=== PATIENT | male | born 1950 | race Hispanic/Latino ===

== ENCOUNTER 2018-07-18 06:44 | Emergency (ER) | payer MEDICARE ==
[~2018-07-18] VITALS: Ht 185.4 cm; Wt 81.2 kg
--- NOTE | 2018-07-18 08:00 | NUR ---
Dr. Kowalski notified of inability to irrigate current Tucker at this time. New orders to remove old catheter and insert new Tucker.
[2018-07-18] MEDS ORDERED: LIDOCAINE JELLY 2% 10ML URO-JET ONE (08:01)
[2018-07-18 08:25] LABS: CLARITY,URINE CLOUDY (CLEAR); COLOR,URINE YELLOW (YELLOW)
[2018-07-18 08:26] LABS: BILIRUBIN,URINE NEGATIVE (NEGATIVE); KETONES,URINE NEGATIVE (NEGATIVE); LEUKOCYTE ESTERASE ,URINE 2+ (NEGATIVE); NITRITE,URINE NEGATIVE (NEGATIVE); PROTEIN,URINE DIPSTICK TRACE (NEGATIVE); URINE UROBILINOGEN 0.2 mg/dL (0.2 - 1)
[2018-07-18] MEDS ORDERED: LIDOCAINE JELLY 2% 10ML URO-JET TOP ONE (08:30)
[2018-07-18 08:31] LABS: AMORPHOUS SEDIMENT,URINE MODERATE (FEW); BACTERIA,URINE MANY /HPF; EPITHELIAL CELLS,URINE FEW /LPF; MUCUS,URINE MODERATE (RARE); TRIPLE PHOSPHATE CRYSTAL,UR FEW (FEW)
[2018-07-18] MEDS ORDERED: MACROBID 100 M100 MG PO (08:48)
[2018-07-18 08:51] VITALS: BP 132/72
== END 2018-07-18 09:05 | disposition home or self-care (01) ==
LOC: ER 06:44
DX: R33.9 Retention of urine, unspecified (principal); I10 Essential (primary) hypertension; E78.5 Hyperlipidemia, unspecified; Z86.718 Personal history of other venous thrombosis and embolism
CPT/HCPCS: 51700; 81001; 87086; 87186; 99284

== ENCOUNTER 2018-10-26 22:12 | Emergency (ER) | payer OTHER ==
[~2018-10-26] VITALS: Ht 185.4 cm; Wt 81.2 kg
[~2018-10-26 22:12] MED LIST: MACROBID 100 M100 MG PO
--- NOTE | 2018-10-26 23:00 | NUR ---
PT C CATHETER IN PLACE ON ARRIVAL TO ER. NO URINE OUTPUT PER FAMILY. 20FR CATHETER REMOVED PER MD ORDERS. MARTINEZ NOTED C 38 CC FLUID WHILE DEFLATING. ORDERED TO REPLACE CATHETER. 20FR CATHETER INSERTED. CLOUDY YELLOW URINE RETURN NOTED. MARTINEZ INFLATED C 30CC NS. MD INFORMED. 275CC CLOUDY YELLOW RETURN NOTED IN BAG.
[2018-10-26 23:18] LABS: BILIRUBIN,URINE NEGATIVE (NEGATIVE); CLARITY,URINE CLOUDY (CLEAR); COLOR,URINE YELLOW (YELLOW); KETONES,URINE NEGATIVE (NEGATIVE); LEUKOCYTE ESTERASE ,URINE LARGE (NEGATIVE); NITRITE,URINE POSITIVE (NEGATIVE); PROTEIN,URINE DIPSTICK TRACE (NEGATIVE); URINE UROBILINOGEN 1 mg/dL (0.2 - 1)
[2018-10-26 23:32] LABS: AMORPHOUS SEDIMENT,URINE MANY (FEW); BACTERIA,URINE MANY /HPF; EPITHELIAL CELLS,URINE FEW /LPF; TRIPLE PHOSPHATE CRYSTAL,UR FEW (FEW); WBC,URINE (MAN) >50 /HPF (0-5)
== END 2018-10-27 00:09 | disposition home or self-care (01) ==
LOC: ER 22:12
DX: N30.91 Cystitis, unspecified with hematuria (principal); N40.1 Benign prostatic hyperplasia with lower urinary tract symptoms; R33.8 Other retention of urine
CPT/HCPCS: 51700; 81001; 87086; 87186; 99283

== ENCOUNTER 2019-02-10 10:13 | Emergency (ER) | payer OTHER ==
[~2019-02-10] VITALS: Ht 185.4 cm; Wt 81.2 kg
== END 2019-02-10 11:15 | disposition home or self-care (01) ==
LOC: ER 10:13
DX: Z46.6 Encounter for fitting and adjustment of urinary device (principal); R33.9 Retention of urine, unspecified; I10 Essential (primary) hypertension; E78.5 Hyperlipidemia, unspecified; Z79.82 Long term (current) use of aspirin; Z86.718 Personal history of other venous thrombosis and embolism; Z86.711 Personal history of pulmonary embolism; M54.9 Dorsalgia, unspecified; G89.29 Other chronic pain
CPT/HCPCS: 99282

== ENCOUNTER 2019-02-11 15:43 | Observation (INO) | payer OTHER ==
[~2019-02-11] VITALS: Ht 185.4 cm; Wt 81.2 kg
--- NOTE | 2019-02-11 17:46 | Diagnostic Imaging Report ---
History:Fall, history of hypotension Comparison studies: None Technique: Axial images were obtained from the skull base to the vertex. Coronal and sagittal images reconstructed from the axial data. Dose modulation, iterative reconstruction, and/or weight based adjustment of the mA/kV was utilized to reduce the radiation dose to as low as reasonably achievable. Intravenous contrast: None Findings: Suboptimal evaluation due to motion artifact, particularly at the level of skull base and posterior fossa structures. Scalp/skull: 6 mm midline frontal scalp contusion without underlying fracture. There is an additional soft tissue contusion overlying the left superior lateral orbital rim measuring up to 11 mm in depth. Extra-axial spaces: No masses. No fluid collections. Brain sulci: Mildly prominent. Ventricles: The ventricular system is moderately enlarged, possibly more so than the degree of volume loss. Parenchyma: Periventricular hypodensities in the supratentorial white matter likely represent small vessel ischemic changes. No masses, hemorrhage, acute or chronic cortical vascular insults. Sellar/suprasellar region: No abnormalities. Craniocervical junction: Patent foramen magnum. No Chiari one malformation. Incidental findings: Atherosclerotic calcifications in the carotid siphons . Impression: 1. Frontal scalp and left periorbital soft tissue contusions without underlying fractures. 2. Moderate ventriculomegaly is out of proportion to the degree of parenchymal volume loss, may represent normal pressure hydrocephalus in appropriate clinical setting. 3. Periventricular hypodensities likely represent underlying chronic microvascular ischemic changes, although a component of transependymal edema from hydrocephalus cannot be ruled out. A preliminary report was given by Neuroradiology fellow Dr. Pacheco at 5:46 PM on 02/11/2019. I have reviewed the images and agree with findings in the preliminary report. Signed by: Dr. Paradise Rascon M.D. on 02/11/2019 7:56 PM
[2019-02-11 18:04] LABS: BASOPHILS % 0.2 % (0.0-1.0); EOSINOPHILS % 0.2 % (0.0-6.0); HEMATOCRIT 26.3 % (38.2-49.6); HEMOGLOBIN 8.9 g/dL (14.0-18.0); LYMPHOCYTES # (AUTO) 0.9 (1.0-3.2); LYMPHOCYTES % 6.9 % (18.0-39.1); MEAN CORPUSCULAR HEMOGLOBIN 33.3 pg (28-32); MEAN CORPUSCULAR HGB CONC 33.8 g/dL (31-35); MEAN CORPUSCULAR VOLUME 98.5 fL (81-99); MONOCYTES # (AUTO) 0.9 (0.2-0.8); MONOCYTES % 7.5 % (4.4-11.3); NEUTROPHILS # (AUTO) 10.5 (2.1-6.9); NEUTROPHILS % 84.8 % (38.7-80.0); PLATELET COUNT 222 x10e3/uL (140-360); RED BLOOD COUNT 2.67 x10e6/uL (4.3-5.7); RED CELL DISTRIBUTION WIDTH 12.9 % (11.7-14.4)
[2019-02-11 18:15] LABS: BILIRUBIN,URINE NEGATIVE (NEGATIVE); CLARITY,URINE SL CLOUDY (CLEAR); COLOR,URINE YELLOW (YELLOW); KETONES,URINE NEGATIVE (NEGATIVE); LEUKOCYTE ESTERASE ,URINE LARGE (NEGATIVE); NITRITE,URINE NEGATIVE (NEGATIVE); PROTEIN,URINE DIPSTICK 1+ (NEGATIVE); URINE UROBILINOGEN 0.2 mg/dL (0.2 - 1)
[2019-02-11 18:24] LABS: ALANINE AMINOTRANSFERASE 10 IU/L (0-55); ALKALINE PHOSPHATASE 54 IU/L (40-150); ANION GAP 13.4 mmol/L (8-16); BLOOD UREA NITROGEN 13 mg/dL (7-26); BUN/CREATININE RATIO 21 (6-25); CALCIUM 8.9 mg/dL (8.4-10.2); CARBON DIOXIDE 29 mmol/L (22-29); CHLORIDE 93 mmol/L (98-107); CREATININE, SERUM 0.63 mg/dL (0.72-1.25); EST GLOMERULAR FILTRATION RATE > 60 ML/MIN (60-); GLUCOSE 106 mg/dL (74-118); POTASSIUM 3.4 mmol/L (3.5-5.1); SODIUM 132 mmol/L (136-145)
[2019-02-11 18:42] LABS: BACTERIA,URINE MODERATE /HPF; EPITHELIAL CELLS,URINE FEW /LPF; WBC,URINE (MAN) 21-50 /HPF (0-5)
[2019-02-11] MEDS ORDERED: ACETAMINOPHEN 325 MG TAB PO PRN (18:45)
--- NOTE | 2019-02-11 18:52 | Diagnostic Imaging Report ---
Examination: Single AP view of the chest. COMPARISON: None. INDICATION: Fall, shakes DISCUSSION: Lines/tubes: None. Lungs: The lungs are well inflated and clear. No pneumonia or pulmonary edema. Pleura: No pleural effusion or pneumothorax. Heart and mediastinum: Mild cardiomegaly Bones and soft tissues: No acute bony abnormalities. Degenerative changes in the thoracic spine. IMPRESSION: 1. No acute cardiopulmonary abnormalities. Signed by: Dr. Abel Moffett M.D. on 02/11/2019 6:49 PM
[2019-02-11 20:05] VITALS: BP 104/57
[2019-02-11 20:30] VITALS: BP 104/57
[2019-02-11 21:00] VITALS: BP 104/57
[2019-02-12] VITALS (8 sets, daily range): BP systolic 112–166; BP diastolic 56–78
[2019-02-12] MEDS ORDERED: POTASSIUM CHLO10 ME1 PO (01:07)
[2019-02-12] MEDS ORDERED: FLOMAX0.4 MG PO (01:07)
[2019-02-12] MEDS ORDERED: DOCUSATE SODIU100 MG PO (01:07)
[2019-02-12] MEDS ORDERED: LISINOPRIL30 MG PO (01:07)
[2019-02-12] MEDS ORDERED: ASPIRIN CHEW81 MG PO (01:07)
[2019-02-12] MEDS ORDERED: VITAMIN D400 UNIT PO (01:07)
[2019-02-12] MEDS ORDERED: CRESTOR10 MG PO (01:07)
[2019-02-12] MEDS ORDERED: ENSURE PLUS237 ML (01:07)
[2019-02-12] MEDS ORDERED: FINASTERIDE5 MG PO (01:07)
[2019-02-12] MEDS ORDERED: OMEPRAZOLE40 MG PO (01:07)
[2019-02-12] MEDS ORDERED: ROPINIROLE HCL1 MG PO (01:07)
[2019-02-12] MEDS ORDERED: NAMENDA10 MG PO (01:07)
[2019-02-12] MEDS ORDERED: ACETAMINOP325 MG/10 PO (01:07)
[2019-02-12 05:48] LABS: BASOPHILS % 0.1 % (0.0-1.0); HEMATOCRIT 25.9 % (38.2-49.6); HEMOGLOBIN 8.6 g/dL (14.0-18.0); LYMPHOCYTES # (AUTO) 0.4 (1.0-3.2); LYMPHOCYTES % 4.3 % (18.0-39.1); MEAN CORPUSCULAR HGB CONC 33.2 g/dL (31-35); MEAN CORPUSCULAR VOLUME 96.3 fL (81-99); MONOCYTES # (AUTO) 0.6 (0.2-0.8); MONOCYTES % 6.2 % (4.4-11.3); NEUTROPHILS # (AUTO) 8.4 (2.1-6.9); NEUTROPHILS % 89.1 % (38.7-80.0); PLATELET COUNT 212 x10e3/uL (140-360); RED BLOOD COUNT 2.69 x10e6/uL (4.3-5.7); RED CELL DISTRIBUTION WIDTH 12.7 % (11.7-14.4)
[2019-02-12 06:10] LABS: ALANINE AMINOTRANSFERASE 9 IU/L (0-55); ALBUMIN 2.7 g/dL (3.5-5.0); ALBUMIN/GLOBULIN RATIO 0.9 (0.8-2.0); ALKALINE PHOSPHATASE 48 IU/L (40-150); BLOOD UREA NITROGEN 11 mg/dL (7-26); BUN/CREATININE RATIO 20 (6-25); CALCIUM 8.8 mg/dL (8.4-10.2); CARBON DIOXIDE 30 mmol/L (22-29); CHLORIDE 96 mmol/L (98-107); CREATININE, SERUM 0.56 mg/dL (0.72-1.25); EST GLOMERULAR FILTRATION RATE > 60 ML/MIN (60-); GLUCOSE 103 mg/dL (74-118); SODIUM 133 mmol/L (136-145)
[2019-02-12] MEDS ORDERED: SIMVASTATIN 40 MG TAB PO SCH (09:00)
[2019-02-12] MEDS: DOCUSATE SODIUM 100 MG CAP PO SCH ×2 (09:00→17:23)
[2019-02-12] MEDS ORDERED: SODIUM CHLORIDE 0.9% 250ML 250 ML ONE (10:36)
[2019-02-12] MEDS: POTASSIUM CHLORIDE 10MEQ EA PO SCH (10:41)
[2019-02-12] MEDS: FINASTERIDE 5 MG TAB PO SCH (10:43)
[2019-02-12] MEDS: ROPINIROLE HCL 1 MG TAB PO SCH ×2 (10:43→17:23)
[2019-02-12] MEDS: PANTOPRAZOLE SOD 40 MG TABEC PO SCH (10:43)
[2019-02-12] MEDS: TAMSULOSIN HCL 0.4 MG CAP PO SCH (10:45)
[2019-02-12] MEDS: MEMANTINE 10 MG TAB PO SCH (10:45)
[2019-02-12] MEDS: MAGNESIUM OXIDE 400 MG TAB PO SCH ×2 (10:45→17:23)
[2019-02-12] MEDS: CEFTRIAXONE SOD 1 GM/NS 50 ML 50 ML IV SCH ×2 (10:46→21:08)
[2019-02-12] MEDS: LISINOPRIL 10 MG TAB PO SCH (10:46)
--- NOTE | 2019-02-12 13:36 | History and Physical ---
The patient on observation. Observation day, February 11, 2019. PRIMARY CARE PHYSICIAN: Willam Caruso MD. SUPERINTENDENT LAUNDRY: Shahid Mason MD. CHIEF COMPLAINT: Status post fall with facial hematoma. HISTORY OF PRESENT ILLNESS: This is a 68-year-old male with urinary retention, chronic Tucker catheter. The patient has recurrent urinary tract infection. Apparently, he was in his wheelchair outside smoking and he dropped his glasses, bend down to pick his glasses and fell on his face. He has a facial hematoma. He was brought into the hospital for an evaluation. In the hospital emergency room, the patient had a CT scan of the brain that was done and the finding found that he has frontal scalp and left periorbital soft tissue contusion without underlying fractures. He does have moderate ventriculomegaly out of proportion to the degree of the parenchymal volume loss. This may represent normal pressure hydrocephalus in appropriate setting per reading. Therefore, a consultation was placed with Dr. Mason. The patient is otherwise stable. No headaches. No visual changes. PAST MEDICAL HISTORY: Hiatal hernia, reflux, urinary retention and chronic Tucker catheter, vascular Parkinson, severe neuropathy, bed and wheelchair-bound, hypertension, enlarged prostate, recurrent urinary tract infection, and dyslipidemia. PAST SURGICAL HISTORY: Lower back surgery, arthroscopic knee surgery, and appendectomy. SOCIAL HISTORY: The patient is a smoker. He does not drink alcohol. No regular drug. ALLERGIES: TO GALANTAMINE, LIPITOR, PRAVASTATIN, AND SULINDAC. PHYSICAL EXAMINATION: VITAL SIGNS: Temperature is 98, blood pressure 153/73, pulse rate 92, and respirations 18. GENERAL: The patient is in no acute distress. He is awake. HEENT: Facial hematoma, orbital swelling. No laceration. NECK: Grossly supple. PULMONARY: Clear. CARDIOVASCULAR: Regular rate and rhythm. ABDOMEN: Soft, non-distention, and nontender. Tucker catheter in place. EXTREMITIES: No cyanosis or edema. Multiple bruises noticed. NEUROLOGIC: No gross new focal deficit on examination and per family. LABORATORY DATA: Sodium is 133, potassium 3, chloride 96, bicarb 30, BUN 11, creatinine of 0.6,and glucose 103. WBC is 9.5, hemoglobin 8.6, hematocrit 26, and platelets is 212. AST 10, ALT 9, total bilirubin 0.6, and alkaline phosphatase 48. CT scan of the brain as mentioned above. Chest x-ray, no acute cardiopulmonary abnormality. IMPRESSION: 1. Status post fall with facial swelling and hematoma. No laceration. No fractures noticed. 2. Electrolyte disorder. 3. Hydrocephalus. 4. Baseline multiple medical problem including vascular dementia, Parkinson, severe neuropathy, bed and wheelchair-bound, smoker, hiatal hernia, and reflux. PLAN: Replace electrolytes. Home medication resume. Antibiotics. We will monitor the patient closely. Follow up with Dr. Shahid Mason in consultation. Most likely, the patient will be going home within 24 to 48 hours. MD MAXIMUS Gutierrez/MODL /[id number]
--- NOTE | 2019-02-12 20:34 | Diagnostic Imaging Report ---
EXAMINATION: Head CT HISTORY: Status post fall 2 weeks ago, follow-up, hydrocephalus COMPARISON: Head CT 02/11/2019 TECHNIQUE: Multidetector axial images were obtained without contrast from the foramen magnum to the vertex . The images were reconstructed using brain and bone algorithms. Thin section brain images were reformatted into coronal and sagittal planes. Image quality: Motion/streaking artifact limits the evaluation of the skull base and posterior cranial fossa. Dose modulation, iterative reconstruction, and/or weight based adjustment of the mA/kV was utilized to reduce the radiation dose to as low as reasonably achievable. FINDINGS: Parenchyma: 1. Stable moderate chronic microvascular ischemic changes. 2. No mass or hemorrhage. No CT evidence of acute territorial vascular insult. Extra-axial spaces:No abnormal density. No extra-axial fluid collections Brain volume: Normal for age. Ventricles: Mild ventriculomegaly, that is slightly out of proportion to the size of the cortical sulci, thinning and upward displacement of the corpus callosum, with relative partial effacement of the vertex region sulci. Some degree of normal pressure hydrocephalus cannot be excluded in the appropriate clinical setting. Arteries: No density suggestive of thrombus. Dural sinuses: No abnormal density. Extra-axial spaces: No abnormal density. Foramen magnum: No mass, Chiari malformation, or basilar invagination. Sella: No obvious mass. Paranasal/mastoid sinuses: Imaged portions unremarkable. Skull/Scalp: No lytic or blastic lesions. No fractures. Persistent left frontotemporal and midline forehead soft tissue swelling/hematoma. IMPRESSION: 1. No acute posttraumatic intracranial hemorrhage. 2. Moderate chronic lacunar ischemic changes, stable compared to prior study. 3. Disproportionate ventriculomegaly, unchanged compared to head CT of 02/11/2019. 4. Grossly unchanged frontal scalp and left periorbital soft tissue swelling. Signed by: Dr. Kasey Marte M.D. on 02/12/2019 8:31 PM
[2019-02-13] VITALS: BP 137/70
[2019-02-13 04:00] VITALS: BP 147/70
[2019-02-13] MEDS: LISINOPRIL 10 MG TAB PO SCH (05:46)
[2019-02-13 06:18] LABS: ANION GAP 11.1 mmol/L (8-16); BLOOD UREA NITROGEN 11 mg/dL (7-26); BUN/CREATININE RATIO 20 (6-25); CALCIUM 8.8 mg/dL (8.4-10.2); CARBON DIOXIDE 29 mmol/L (22-29); CHLORIDE 94 mmol/L (98-107); CREATININE, SERUM 0.55 mg/dL (0.72-1.25); EST GLOMERULAR FILTRATION RATE > 60 ML/MIN (60-); GLUCOSE 105 mg/dL (74-118); POTASSIUM 3.1 mmol/L (3.5-5.1); SODIUM 131 mmol/L (136-145)
[2019-02-13] MEDS ORDERED: POTASSIUM CHLORIDE 20 MEQ TAB CR PO ONE (08:00)
[2019-02-13 09:02] VITALS: BP 147/70
[2019-02-13] MEDS: POTASSIUM CHLORIDE 10MEQ EA PO SCH (09:04)
[2019-02-13] MEDS: CEFTRIAXONE SOD 1 GM/NS 50 ML 50 ML IV SCH (09:04)
[2019-02-13] MEDS: DOCUSATE SODIUM 100 MG CAP PO SCH (09:04)
[2019-02-13] MEDS: ROPINIROLE HCL 1 MG TAB PO SCH (09:04)
[2019-02-13] MEDS: FINASTERIDE 5 MG TAB PO SCH (09:04)
[2019-02-13] MEDS: TAMSULOSIN HCL 0.4 MG CAP PO SCH (09:04)
[2019-02-13] MEDS: MEMANTINE 10 MG TAB PO SCH (09:04)
[2019-02-13] MEDS: MAGNESIUM OXIDE 400 MG TAB PO SCH (09:04)
[2019-02-13] MEDS: PANTOPRAZOLE SOD 40 MG TABEC PO SCH (09:04)
[2019-02-13 09:21] VITALS: BP 161/77
[2019-02-13 12:26] VITALS: BP 121/58
--- NOTE | 2019-02-14 05:17 | Discharge Summary ---
PRIMARY CARE PHYSICIAN: Willam Caruso MD. FINAL DIAGNOSES: 1. Accidental fall on his face with facial hematoma. 2. Chronic hydrocephalus. 3. Chronic urinary tract infection due to chronic Tucker catheter. SUMMARY: A 68-year-old male, patient of Dr. Willam Caruso, but the patient is followed in the [place]. The patient apparently was in his wheelchair, smoking outside, dropped his glasses and bent down and tried to scrap picker the glasses and fell forward hitting his face. He has some facial hematoma along the eyelid and the facial area. The repeat CT scan showed no bleed and no sign of worsening hematoma. The patient is otherwise stable. Pain significantly subsided. Incidental finding of hydrocephalus. The patient has no symptoms. No headaches. The patient is stable. He does have a chronic Tucker catheter due to enlarged prostate. He is followed by urologist at the [place]. The patient has gram-negative carline infection. He was on Macrobid. The patient will continue with infection treatment and we will give the patient Cipro for now. He will resume home medication. Potassium replaced. Chronic hyponatremia. The patient is stable, discharge home today after lunch. [facility] Discussed with the patient's spouse. MD MAXIMUS Gutierrez/DINOL /[id number] cc: Willam Caruso MD
== END 2019-02-13 14:35 | disposition home or self-care (01) ==
LOC: ER 15:43 → ERHOLD 18:26 → MED/SURG 20:26
PROVIDERS: ADMIT Internal Medicine; ATTEND Internal Medicine
DX: S00.03XA Contusion of scalp, initial encounter (principal); S05.12XA Contusion of eyeball and orbital tissues, left eye, initial encounter; I95.9 Hypotension, unspecified; R50.9 Fever, unspecified; G30.1 Alzheimer's disease with late onset; F02.81 Dementia in other diseases classified elsewhere, unspecified severity, with behavioral disturbance; F01.50 Vascular dementia, unspecified severity, without behavioral disturbance, psychotic disturbance, mood disturbance, and anxiety; G20 Parkinson's disease; E11.42 Type 2 diabetes mellitus with diabetic polyneuropathy; Z91.81 History of falling; W05.0XXA Fall from non-moving wheelchair, initial encounter; Y93.89 Activity, other specified; Z87.440 Personal history of urinary (tract) infections; Z96.0 Presence of urogenital implants; F17.210 Nicotine dependence, cigarettes, uncomplicated; K44.9 Diaphragmatic hernia without obstruction or gangrene; E78.5 Hyperlipidemia, unspecified; N40.0 Benign prostatic hyperplasia without lower urinary tract symptoms; Z99.3 Dependence on wheelchair; G91.2 (Idiopathic) normal pressure hydrocephalus; T83.511A Infection and inflammatory reaction due to indwelling urethral catheter, initial encounter; E87.1 Hypo-osmolality and hyponatremia; Z79.82 Long term (current) use of aspirin
CPT/HCPCS: 36415 ×3; 70450 ×2; 71045; 80048; 80053 ×2; 81001; 83605; 83690; 85025 ×2; 87040; 87071; 87186; 87205; 99284; G0378 ×3; J0696 ×2; J7050; S0164

== ENCOUNTER 2020-09-08 12:18 | Observation (INO) | payer OTHER ==
[~2020-09-08] VITALS: Ht 185.4 cm; Wt 80.7 kg
[~2020-09-08 12:18] MED LIST changes: +ACETAMINOP325 MG/10 PO; +ASPIRIN CHEW81 MG PO; +CRESTOR10 MG PO; +DOCUSATE SODIU100 MG PO; +ENSURE PLUS237 ML; +FINASTERIDE5 MG PO; +FLOMAX0.4 MG PO; +LISINOPRIL30 MG PO; +NAMENDA10 MG PO; +OMEPRAZOLE40 MG PO; +POTASSIUM CHLO10 ME1 PO; +ROPINIROLE HCL1 MG PO; +VITAMIN D400 UNIT PO
[2020-09-08 12:54] LABS: BASOPHILS % 0.5 % (0.0-1.0); EOSINOPHILS # (AUTO) 0.1 (0.0-0.4); EOSINOPHILS % 1.1 % (0.0-6.0); HEMATOCRIT 34.8 % (38.2-49.6); HEMOGLOBIN 11.4 g/dL (14.0-18.0); LYMPHOCYTES # (AUTO) 1.5 (1.0-3.2); MEAN CORPUSCULAR HEMOGLOBIN 33.2 pg (28-32); MEAN CORPUSCULAR HGB CONC 32.8 g/dL (31-35); MEAN CORPUSCULAR VOLUME 101.5 fL (81-99); MONOCYTES # (AUTO) 0.3 (0.2-0.8); NEUTROPHILS # (AUTO) 4.3 (2.1-6.9); NEUTROPHILS % 68.6 % (38.7-80.0); PLATELET COUNT 234 x10e3/uL (140-360); RED BLOOD COUNT 3.43 x10e6/uL (4.3-5.7); RED CELL DISTRIBUTION WIDTH 13.4 % (11.7-14.4)
[2020-09-08 12:56] LABS: CLARITY,URINE CLOUDY (CLEAR); COLOR,URINE YELLOW (YELLOW)
[2020-09-08 12:57] LABS: KETONES,URINE NEGATIVE (NEGATIVE); LEUKOCYTE ESTERASE ,URINE NEGATIVE (NEGATIVE); NITRITE,URINE NEGATIVE (NEGATIVE); PROTEIN,URINE DIPSTICK NEGATIVE (NEGATIVE); URINE UROBILINOGEN 0.2 mg/dL (0.2 - 1)
[2020-09-08 13:05] LABS: AMORPHOUS SEDIMENT,URINE MODERATE (FEW); BACTERIA,URINE FEW /HPF; EPITHELIAL CELLS,URINE FEW /LPF; RBC,URINE >50 /HPF (0-5); WBC,URINE (MAN) 0-5 /HPF (0-5)
[2020-09-08 13:06] LABS: INR 0.94; PARTIAL THROMBOPLASTIN TIME 31.3 seconds (23.8-35.5); PROTHROMBIN TIME 13.2 seconds (11.9-14.5)
[2020-09-08 13:10] LABS: ALANINE AMINOTRANSFERASE 6 IU/L (0-55); ALBUMIN 3.7 g/dL (3.5-5.0); ALBUMIN/GLOBULIN RATIO 1.2 (0.8-2.0); ALKALINE PHOSPHATASE 52 IU/L (40-150); ANION GAP 14.8 mmol/L (8-16); BLOOD UREA NITROGEN 12 mg/dL (7-26); BUN/CREATININE RATIO 20 (6-25); CALCIUM 8.8 mg/dL (8.4-10.2); CARBON DIOXIDE 28 mmol/L (22-29); CHLORIDE 98 mmol/L (98-107); CREATINE KINASE 29 IU/L (30-200); CREATININE, SERUM 0.59 mg/dL (0.72-1.25); EST GLOMERULAR FILTRATION RATE > 60 ML/MIN (60-); GLUCOSE 116 mg/dL (74-118); MAGNESIUM 1.8 MG/DL (1.3-2.1); POTASSIUM 3.8 mmol/L (3.5-5.1); SODIUM 137 mmol/L (136-145)
[2020-09-08] MEDS ORDERED: MIRLAX PO (17:59)
[2020-09-08 18:02] VITALS: BP 149/71
[2020-09-08 18:32] VITALS: BP 149/71
[2020-09-08 20:52] VITALS: BP 167/83
[2020-09-08 22:21] VITALS: BP 167/83
[2020-09-08 22:41] LABS: CREATINE KINASE MB 1.1 ng/mL (0-5.0)
[2020-09-09 00:48] VITALS: BP 169/78
[2020-09-09 04:00] VITALS: BP 139/91
[2020-09-09 06:17] LABS: BASOPHILS % 0.6 % (0.0-1.0); EOSINOPHILS # (AUTO) 0.1 (0.0-0.4); EOSINOPHILS % 0.9 % (0.0-6.0); HEMATOCRIT 34.7 % (38.2-49.6); HEMOGLOBIN 11.6 g/dL (14.0-18.0); LYMPHOCYTES # (AUTO) 1.3 (1.0-3.2); LYMPHOCYTES % 18.5 % (18.0-39.1); MEAN CORPUSCULAR HEMOGLOBIN 33.5 pg (28-32); MEAN CORPUSCULAR HGB CONC 33.4 g/dL (31-35); MEAN CORPUSCULAR VOLUME 100.3 fL (81-99); MONOCYTES # (AUTO) 0.4 (0.2-0.8); MONOCYTES % 5.8 % (4.4-11.3); NEUTROPHILS # (AUTO) 5.2 (2.1-6.9); NEUTROPHILS % 73.3 % (38.7-80.0); PLATELET COUNT 248 x10e3/uL (140-360); RED BLOOD COUNT 3.46 x10e6/uL (4.3-5.7); RED CELL DISTRIBUTION WIDTH 13.2 % (11.7-14.4)
[2020-09-09 06:46] LABS: ALANINE AMINOTRANSFERASE 6 IU/L (0-55); ALBUMIN 3.6 g/dL (3.5-5.0); ALBUMIN/GLOBULIN RATIO 1.2 (0.8-2.0); ALKALINE PHOSPHATASE 51 IU/L (40-150); ANION GAP 11.6 mmol/L (8-16); BLOOD UREA NITROGEN 11 mg/dL (7-26); BUN/CREATININE RATIO 19 (6-25); CARBON DIOXIDE 30 mmol/L (22-29); CHLORIDE 98 mmol/L (98-107); CHOL/HDL RATIO 2.6 (3.9-4.7); CHOLESTEROL 145 MD/DL (0-199); CREATININE, SERUM 0.58 mg/dL (0.72-1.25); EST GLOMERULAR FILTRATION RATE > 60 ML/MIN (60-); GLUCOSE 97 mg/dL (74-118); HDL CHOLESTEROL 55 MG/DL (40-60); LDL CHOLESTEROL 71 MG/DL (60-130); POTASSIUM 3.6 mmol/L (3.5-5.1); SODIUM 136 mmol/L (136-145); TRIGLYCERIDES 97 MG/DL (0-149)
[2020-09-09 07:04] LABS: CREATINE KINASE MB 1.3 ng/mL (0-5.0)
[2020-09-09 08:17] VITALS: BP 172/78
[2020-09-09 09:12] VITALS: BP 172/78
[2020-09-09] MEDS ORDERED: ACETAMINOPHEN 325 MG/10 ML UDC PO PRN (09:30)
[2020-09-09] MEDS ORDERED: ROPINIROLE HCL 1 MG TAB PO SCH (09:30)
[2020-09-09] MEDS ORDERED: CEPHALEXIN 500 MG CAP PO SCH (09:45)
[2020-09-09] MEDS ORDERED: LEVETIRACETAM 500 MG TAB PO SCH (09:45)
[2020-09-09] MEDS ORDERED: LISINOPRIL 10 MG TAB PO SCH (10:00)
[2020-09-09 12:26] VITALS: BP 130/69
[2020-09-09] MEDS ORDERED: DOCUSATE SODIUM 100 MG CAP PO SCH (17:00)
[2020-09-10] MEDS ORDERED: PANTOPRAZOLE SOD 40 MG TABEC PO SCH (07:30)
[2020-09-10] MEDS ORDERED: TAMSULOSIN HCL 0.4 MG CAP PO SCH (09:00)
[2020-09-10] MEDS ORDERED: MEMANTINE 10 MG TAB PO SCH (09:00)
[2020-09-10] MEDS ORDERED: POTASSIUM CHLORIDE 10MEQ EA PO SCH (09:00)
[2020-09-10] MEDS ORDERED: SIMVASTATIN 40 MG TAB PO SCH (09:00)
[2020-09-10] MEDS ORDERED: ASPIRIN 81 MG CHEW TAB PO SCH (09:00)
[2020-09-10] MEDS ORDERED: FINASTERIDE 5 MG TAB PO SCH (09:00)
== END 2020-09-09 13:00 | disposition home or self-care (01) ==
LOC: ER 13:00 → ERHOLD 14:43 → MED/SURG2 16:12
PROVIDERS: ADMIT Internal Medicine; ATTEND Internal Medicine
DX: T83.510A Infection and inflammatory reaction due to cystostomy catheter, initial encounter (principal); R94.31 Abnormal electrocardiogram [ECG] [EKG]; F01.50 Vascular dementia, unspecified severity, without behavioral disturbance, psychotic disturbance, mood disturbance, and anxiety; G20 Parkinson's disease; F02.80 Dementia in other diseases classified elsewhere, unspecified severity, without behavioral disturbance, psychotic disturbance, mood disturbance, and anxiety; Z74.01 Bed confinement status; Z20.822 Contact with and (suspected) exposure to COVID-19; S80.811A Abrasion, right lower leg, initial encounter; R55 Syncope and collapse
CPT/HCPCS: 36415 ×2; 70450; 71045; 80053 ×2; 80061; 81001; 82550 ×2; 82553 ×2; 83735; 83880; 84484 ×2; 85025 ×2; 85610; 85730; 87086; 87186; 93005; 99284; G0378 ×2; U0002

== ENCOUNTER 2021-05-15 09:46 | Emergency (ER) | payer OTHER ==
[~2021-05-15] VITALS: Ht 185.4 cm; Wt 80.7 kg
[~2021-05-15 09:46] MED LIST changes: +MIRLAX PO
[2021-05-15 10:50] LABS: CLARITY,URINE CLOUDY (CLEAR); COLOR,URINE YELLOW (YELLOW); KETONES,URINE NEGATIVE (NEGATIVE); LEUKOCYTE ESTERASE ,URINE MODERATE (NEGATIVE); NITRITE,URINE POSITIVE (NEGATIVE); PROTEIN,URINE DIPSTICK 2+ (NEGATIVE)
[2021-05-15 11:06] LABS: WBC,URINE (MAN) >50 /HPF (0-5)
[2021-05-15 11:10] LABS: AMORPHOUS SEDIMENT,URINE MODERATE (FEW); BACTERIA,URINE MANY /HPF; EPITHELIAL CELLS,URINE FEW /LPF
== END 2021-05-15 12:14 | disposition home or self-care (01) ==
LOC: ER 10:32
DX: N39.0 Urinary tract infection, site not specified (principal); F03.90 Unspecified dementia, unspecified severity, without behavioral disturbance, psychotic disturbance, mood disturbance, and anxiety; I10 Essential (primary) hypertension; E78.5 Hyperlipidemia, unspecified; M54.9 Dorsalgia, unspecified; G89.29 Other chronic pain
CPT/HCPCS: 81001; 87086; 87186; 99283

== ENCOUNTER 2022-01-17 13:31 | Emergency (ER) | payer OTHER ==
[~2022-01-17] VITALS: Ht 185.4 cm; Wt 80.7 kg
== END 2022-01-17 14:03 | disposition home or self-care (01) ==
LOC: ER 13:34
DX: M25.521 Pain in right elbow (principal); F03.90 Unspecified dementia, unspecified severity, without behavioral disturbance, psychotic disturbance, mood disturbance, and anxiety; L98.9 Disorder of the skin and subcutaneous tissue, unspecified; I10 Essential (primary) hypertension; E78.5 Hyperlipidemia, unspecified; M54.9 Dorsalgia, unspecified; G89.29 Other chronic pain
CPT/HCPCS: 99282

== ENCOUNTER 2022-02-04 17:25 | Emergency (ER) | payer MEDICARE, OTHER ==
[~2022-02-04] VITALS: Ht 185.4 cm; Wt 80.7 kg
== END 2022-02-04 18:03 | disposition home or self-care (01) ==
LOC: ER 17:30
DX: T83.098A Other mechanical complication of other urinary catheter, initial encounter (principal); I10 Essential (primary) hypertension; E78.5 Hyperlipidemia, unspecified; F03.90 Unspecified dementia, unspecified severity, without behavioral disturbance, psychotic disturbance, mood disturbance, and anxiety; Z90.49 Acquired absence of other specified parts of digestive tract; Z88.8 Allergy status to other drugs, medicaments and biological substances
CPT/HCPCS: 99282